=== PATIENT | female | born 1990 | race Caucasian/White ===

== ENCOUNTER 2017-07-02 19:45 | Emergency (ER) | payer MEDICAID ==
[~2017-07-02] VITALS: Ht 162.6 cm; Wt 99.6 kg
[~2017-07-02 19:45] MED LIST: HYDR-3240 PO; IBUP-1222 PO; MEDR10TA PO; OXYC1TAB7 PO
[2017-07-02 19:46] VITALS: BP 121/82
[2017-07-02] MEDS ORDERED: LIDOCAINE 1%, 20ML ONE (20:05)
[2017-07-02] MEDS ORDERED: DIPH,PERTUSS(ACELL),TET VAC/PF 0.5 ML IM-VACC ONE ×2 (20:06→20:30)
[2017-07-02] MEDS ORDERED: LIDOCAINE 1%, 20ML SQ ONE (20:30)
[2017-07-02] MEDS ORDERED: BACITRACIN ZINC OINT 500U/GM, 0.9 GM ONE (21:05)
== END 2017-07-02 21:24 | disposition home or self-care (01) ==
LOC: ED 21:18
DX: S61.411A Laceration without foreign body of right hand, initial encounter (principal); W26.0XXA Contact with knife, initial encounter; Y93.89 Activity, other specified; Y92.89 Other specified places as the place of occurrence of the external cause; Y99.8 Other external cause status
CPT/HCPCS: 12001; 90471; 90715; 99283

== ENCOUNTER 2018-03-13 10:13 | Emergency (ER) | payer MEDICAID ==
[~2018-03-13] VITALS: Ht 162.6 cm; Wt 90.0 kg
[2018-03-13] MEDS ORDERED: IBUPROFEN 200 MG TABLET PO ONE (11:00)
[2018-03-13] MEDS ORDERED: ACETAMINOPHEN 500 MG TABLET PO ONE (11:00)
[2018-03-13] MEDS ORDERED: IBUPROFEN 800 MG TABLET ONE (11:02)
[2018-03-13] MEDS ORDERED: ACETAMINOPHEN 500 MG TABLET ONE (11:03)
[2018-03-13 11:11] LABS: CULTURE INDICATED? YES; HCG UR SG 1.029 (1.003-1.030); MICROSCOPIC INDICATED
[2018-03-13 11:13] LABS: CLUE CELLS NONE SEEN (NONE SEEN)
[2018-03-13 11:14] LABS: WET PREP WBCS MODERATE (FEW)
[2018-03-13 11:53] VITALS: BP 116/71
== END 2018-03-13 11:56 | disposition home or self-care (01) ==
LOC: ED 11:50
DX: N30.90 Cystitis, unspecified without hematuria (principal); N80.9 Endometriosis, unspecified; Z90.49 Acquired absence of other specified parts of digestive tract; Z98.51 Tubal ligation status
CPT/HCPCS: 81001; 81025; 87086; 87210; 87491; 87591; 87808; 99284

== ENCOUNTER 2018-08-20 16:49 | Emergency (ER) | payer MEDICAID ==
[~2018-08-20] VITALS: Ht 162.6 cm; Wt 83.3 kg
[2018-08-20] MEDS ORDERED: AZITHROMYCIN 250 MG TABLET PO ONE (17:00)
[2018-08-20] MEDS ORDERED: CEFTRIAXONE 250 MG IM ONE (17:00)
[2018-08-20 17:42] LABS: BASOPHILS # (AUTO) 0.05 x10^3/uL (0-0.1); BASOPHILS % (AUTO) 1 % (0-1); EOSINOPHILS # (AUTO) 0.27 x10^3/uL (0-0.4); EOSINOPHILS % (AUTO) 4 % (1-7); LYMPHOCYTES # (AUTO) 2.62 x10^3/uL (1-3.4); LYMPHOCYTES % (AUTO) 38 % (22-44); MD NO; MEAN CORPUSCULAR HEMOGLOBIN 30.5 pg (27.0-34.8); MEAN CORPUSCULAR HGB CONC 33.3 g/dL (32.4-35.8); MEAN CORPUSCULAR VOLUME 91.5 fL (80-100); MEAN PLATELET VOLUME 9.2 fL (7.4-10.4); MONOCYTES # (AUTO) 0.35 x10^3/uL (0.2-0.8); MONOCYTES % (AUTO) 5 % (2-9); NEUTROPHILS # (AUTO) 3.55 x10^3/uL (1.8-6.8); NEUTROPHILS % (AUTO) 52 % (42-75); PLATELET COUNT 203 x10^3/uL (130-400); RED BLOOD COUNT 4.33 x10^6/uL (3.82-5.3)
[2018-08-20] MEDS ORDERED: CEFTRIAXONE 250 MG ONE (17:51)
[2018-08-20] MEDS ORDERED: AZITHROMYCIN 500 MG TABLET ONE (17:51)
[2018-08-20 17:53] LABS: ALANINE AMINOTRANSFERASE 12 U/L (12-78); ALBUMIN 3.6 g/dL (3.4-5.0); ANION GAP 6 mmol/L (5-15); CALCIUM 8.4 mg/dL (8.5-10.1); CHLORIDE 111 mmol/L (98-107); CREATININE 0.93 mg/dL (0.55-1.02)
[2018-08-20 17:57] LABS: MICROSCOPIC NOT IND
[2018-08-20 17:58] LABS: ALKALINE PHOSPHATASE 72 U/L (45-117); BILIRUBIN,TOTAL 0.2 mg/dL (0.2-1.0); TOTAL PROTEIN 7.3 g/dL (6.4-8.2)
[2018-08-20 17:59] LABS: CULTURE INDICATED? NO
[2018-08-20 18:38] VITALS: BP 118/68
== END 2018-08-20 18:41 | disposition home or self-care (01) ==
LOC: ED 18:25
DX: N89.8 Other specified noninflammatory disorders of vagina (principal); R10.2 Pelvic and perineal pain
CPT/HCPCS: 36415; 80053; 81003; 84702; 85025; 87491; 87591; 96372; 99283; J0696

== ENCOUNTER 2019-01-26 21:47 | Emergency (ER) | payer MEDICAID ==
[~2019-01-26] VITALS: Ht 162.6 cm; Wt 80.6 kg
[2019-01-26 22:27] LABS: BASOPHILS % (AUTO) 1 % (0-1); EOSINOPHILS # (AUTO) 0.06 x10^3/uL (0-0.4); EOSINOPHILS % (AUTO) 1 % (1-7); LYMPHOCYTES # (AUTO) 4.05 x10^3/uL (1-3.4); LYMPHOCYTES % (AUTO) 29 % (22-44); MD NO; MEAN CORPUSCULAR HEMOGLOBIN 30.9 pg (27.0-34.8); MEAN CORPUSCULAR HGB CONC 32.9 g/dL (32.4-35.8); MEAN PLATELET VOLUME 8.9 fL (7.4-10.4); MONOCYTES # (AUTO) 0.59 x10^3/uL (0.2-0.8); MONOCYTES % (AUTO) 4 % (2-9); NEUTROPHILS # (AUTO) 9.28 x10^3/uL (1.8-6.8); NEUTROPHILS % (AUTO) 66 % (42-75); PLATELET COUNT 204 x10^3/uL (130-400); RED BLOOD COUNT 4.34 x10^6/uL (3.82-5.3); RED CELL DISTRIBUTION WIDTH 14.5 % (9.6-15.2)
--- NOTE | 2019-01-26 22:28 | NUR ---
first contact with pt. pt c/o lower abdominal pain, described as cramping and pressure off and on x 1 month. tonight pain worse. + nausea. denies vomiting. denies painful with urination. LMP January 14. + lightheadedness. pt c/o verginal discharge as well. pt's aox4. resps even and unlabored. bp/spo2 monitors in place. call light within reach.
--- NOTE | 2019-01-26 22:29 | NUR ---
PT AMB TO BR AND BACK TO ROOM WITH STEADY GAIT. UA SENT.
[2019-01-26] MEDS ORDERED: HYDROcodone/APAP 5/325 TABLET PO ONE (22:30)
[2019-01-26 22:31] LABS: MICROSCOPIC NOT IND
[2019-01-26] MEDS ORDERED: HYDROcodone/APAP 5/325 TABLET ONE (22:32)
--- NOTE | 2019-01-26 22:34 | NUR ---
PT IN US NOW.
[2019-01-26 22:38] LABS: ALANINE AMINOTRANSFERASE 8 U/L (12-78); ALBUMIN 3.6 g/dL (3.4-5.0); ANION GAP 6 mmol/L (5-15); CALCIUM 8.4 mg/dL (8.5-10.1); CHLORIDE 109 mmol/L (98-107); CREATININE 0.87 mg/dL (0.55-1.02)
[2019-01-26 22:42] LABS: CULTURE INDICATED? NO
[2019-01-26 22:43] LABS: ALKALINE PHOSPHATASE 71 U/L (45-117); BILIRUBIN,TOTAL 0.2 mg/dL (0.2-1.0); TOTAL PROTEIN 7.3 g/dL (6.4-8.2)
--- NOTE | 2019-01-26 22:57 | NUR ---
PT BACK TO ROOM FROM US.
[2019-01-26 22:59] VITALS: BP 103/59
--- NOTE | 2019-01-26 22:59 | NUR ---
PT MEDICATED PER EMAR. PT TOLERATED WELL. PT'S AOX4. RESPS EVEN AND UNLABORED.
[2019-01-26] MEDS ORDERED: SODIUM CHLORIDE FLUSH 10ML SYR IVF ONE (23:00)
--- NOTE | 2019-01-26 23:25 | NUR ---
PT IN CT NOW.
[2019-01-26] MEDS ORDERED: OMNIPAQUE 350 MG/ML, 100ML BOTTLE ONE (23:41)
--- NOTE | 2019-01-26 23:46 | NUR ---
PT'S PAIN LEVEL IS 4/10 AT THIS TIME.
--- NOTE | 2019-01-27 00:29 | NUR ---
PT GIVEN DC INSTRUCTIONS. PT'S AOX4. RESPS EVEN AND UNLABORED. PT AMB TO DC WITH STEADY GAIT. NO ACUTE DISTRESS AT DC.
== END 2019-01-27 00:30 | disposition home or self-care (01) ==
LOC: ED 22:13
DX: R10.2 Pelvic and perineal pain (principal); R10.30 Lower abdominal pain, unspecified; F17.200 Nicotine dependence, unspecified, uncomplicated
CPT/HCPCS: 36415; 74177; 76830; 80053; 81003; 83690; 84703; 85025; 99284; Q9967

== ENCOUNTER 2019-09-25 11:39 | Emergency (ER) | payer MEDICAID ==
[~2019-09-25] VITALS: Ht 162.6 cm; Wt 85.6 kg
[2019-09-25 11:53] VITALS: BP 116/67
[2019-09-25 12:33] LABS: BASOPHILS # (AUTO) 0.03 x10^3/uL (0-0.1); BASOPHILS % (AUTO) 0 % (0-1); EOSINOPHILS % (AUTO) 0 % (1-7); LYMPHOCYTES % (AUTO) 12 % (22-44); MD NO; MEAN CORPUSCULAR HEMOGLOBIN 30.5 pg (27.0-34.8); MEAN CORPUSCULAR HGB CONC 33.1 g/dL (32.4-35.8); MEAN CORPUSCULAR VOLUME 92.4 fL (80-100); MEAN PLATELET VOLUME 8.9 fL (7.4-10.4); MONOCYTES # (AUTO) 1.31 x10^3/uL (0.2-0.8); MONOCYTES % (AUTO) 8 % (2-9); NEUTROPHILS # (AUTO) 12.73 x10^3/uL (1.8-6.8); NEUTROPHILS % (AUTO) 80 % (42-75); PLATELET COUNT 170 x10^3/uL (130-400); RED BLOOD COUNT 4.34 x10^6/uL (3.82-5.3); RED CELL DISTRIBUTION WIDTH 13.5 % (9.6-15.2)
[2019-09-25 12:45] LABS: ALANINE AMINOTRANSFERASE 31 U/L (12-78); ALBUMIN 3.3 g/dL (3.4-5.0); ANION GAP 8 mmol/L (5-15); CALCIUM 8.5 mg/dL (8.5-10.1); CHLORIDE 105 mmol/L (98-107)
[2019-09-25 12:50] LABS: ALKALINE PHOSPHATASE 77 U/L (45-117); TOTAL PROTEIN 7.7 g/dL (6.4-8.2)
[2019-09-25 12:51] LABS: BILIRUBIN,TOTAL 0.6 mg/dL (0.2-1.0)
[2019-09-25 13:01] LABS: MICROSCOPIC INDICATED
[2019-09-25] MEDS ORDERED: IBUPROFEN 200 MG TABLET ONE (14:32)
[2019-09-25] MEDS ORDERED: IBUPROFEN 600 MG TABLET PO ONE (15:00)
== END 2019-09-25 14:46 | disposition home or self-care (01) ==
LOC: ED 14:30
DX: J06.9 Acute upper respiratory infection, unspecified (principal); J02.9 Acute pharyngitis, unspecified; Z87.891 Personal history of nicotine dependence
CPT/HCPCS: 36415; 71046; 80053; 81001; 84703; 85025; 87081; 87880; 99284

== ENCOUNTER 2020-01-20 11:55 | Day surgery (SDC) | payer MEDICAID ==
[~2020-01-20] VITALS: Ht 162.6 cm; Wt 82.7 kg
[~2020-01-20 11:55] MED LIST changes: +BUPIVACAINE/PF 0.25% ONE; +BUPIVACAINE/PF-EPI 0.25% 1:200K ONE
[2020-01-20] MEDS ORDERED: CHLORHEXIDINE 15 ML UDC MM STA (12:06)
[2020-01-20] MEDS ORDERED: LACTATED RINGERS 1,000 ML IV ONE (12:06)
[2020-01-20 12:08] VITALS: BP 118/75
[2020-01-20] MEDS ORDERED: LIDOCAINE-MPF 1%, 2ML INFIL STA (12:26)
[2020-01-20 12:36] LABS: HCG UR SG 1.025 (1.003-1.030)
[2020-01-20] MEDS ORDERED: VANCOMYCIN 500 MG ONE (15:14)
[2020-01-20] MEDS ORDERED: GENTAMICIN 80 MG/2 ML ONE (15:14)
[2020-01-20] MEDS ORDERED: DEXAMETHASONE 4 MG/ML, 1ML ONE (16:19)
[2020-01-20] MEDS ORDERED: GLYCOPYRROLATE 0.2MG/1ML, 5ML ONE (16:19)
[2020-01-20] MEDS ORDERED: MIDAZOLAM 1 MG/ML, 2ML ONE ×2 (16:19→18:49)
[2020-01-20] MEDS ORDERED: ROCURONIUM 10MG/ML,5ML ONE (16:19)
[2020-01-20] MEDS ORDERED: LIDOCAINE-MPF 2% ,5ML ONE (16:19)
[2020-01-20] MEDS ORDERED: PROPOFOL 10 MG/ML, 20ML ONE (16:19)
[2020-01-20] MEDS ORDERED: FENTANYL PF 250 MCG/5ML ONE (16:19)
[2020-01-20] MEDS ORDERED: LABETALOL 5MG/ML, 20ML IV PRN (16:30)
[2020-01-20] MEDS ORDERED: METOPROLOL 1 MG/ML, 5ML IV PRN (16:30)
[2020-01-20] MEDS ORDERED: ALBUTEROL/IPRATROPIUM 2.5MG/0.5MG, 3 ML NPPB PRN (16:30)
[2020-01-20] MEDS ORDERED: EPHEDRINE 50 MG/ML, 1ML IVPush PRN (16:30)
[2020-01-20] MEDS ORDERED: DIPHENHYDRAMINE 50 MG/ML, 1ML IVPush PRN (16:30)
[2020-01-20] MEDS ORDERED: KETOROLAC 30 MG/1 ML IVPush PRN (16:30)
[2020-01-20] MEDS ORDERED: ONDANSETRON 2MG/ML, 2ML IVPush PRN (16:30)
[2020-01-20] MEDS ORDERED: HYDROcodone/APAP 7.5-325MG/15ML UDC PO PRN (16:30)
[2020-01-20] MEDS ORDERED: DIAZEPAM 5 MG/ML, 2ML IVPush PRN (16:30)
[2020-01-20] MEDS ORDERED: MEPERIDINE/PF 25MG/0.5ML IVPush PRN (16:30)
[2020-01-20] MEDS ORDERED: MIDAZOLAM 1 MG/ML, 2ML IV PRN (16:30)
[2020-01-20] MEDS ORDERED: METOCLOPRAMIDE 5 MG/ML, 2ML IVPush PRN (16:30)
[2020-01-20] MEDS ORDERED: OXYcodone 5 MG/5 ML ORAL.SOL UDC PO PRN (16:30)
[2020-01-20] MEDS ORDERED: hydrALAzine 20 MG/ML, 1ML IV PRN (16:30)
[2020-01-20] MEDS ORDERED: EPHEDRINE 50 MG/ML, 1ML IM PRN (16:30)
[2020-01-20] MEDS ORDERED: BUPIVACAINE/PF-EPI 0.25% 1:200K ONE (18:18)
[2020-01-20] MEDS ORDERED: KETOROLAC 30 MG/1 ML ONE (18:51)
[2020-01-20] MEDS ORDERED: FENTANYL PF 100 MCG/2ML ONE ×2 (18:53→19:05)
[2020-01-20] MEDS ORDERED: HYDROmorphone 1 MG/ML, 1ML INJ ONE ×3 (19:05→19:49)
[2020-01-20] MEDS: FENTANYL PF 100 MCG/2ML IV PRN ×2 (19:08→19:15)
[2020-01-20] MEDS: HYDROmorphone 1 MG/ML, 1ML INJ IVPush PRN ×5 (19:10→19:50)
[2020-01-20] MEDS ORDERED: HYDROcodone/APAP 5/325 TABLET PO PRN (22:00)
[2020-01-20] MEDS ORDERED: HYDROmorphone 1 MG/ML, 1ML INJ IV PRN (23:00)
[2020-01-20] MEDS ORDERED: ONDANSETRON 2MG/ML, 2ML IV PRN (23:00)
[2020-01-20] MEDS ORDERED: IBUPROFEN 600 MG TABLET PO PRN (23:00)
[2020-01-20] MEDS ORDERED: KETOROLAC 30 MG/1 ML IV PRN (23:00)
== END 2020-01-20 22:50 | disposition home or self-care (01) ==
LOC: OUT 11:55 → 4NE 20:01 → SDC 22:50
PROVIDERS: ATTEND Obstetrics & Gynecology Female Pelvic Medicine and Reconstructive Surgery
DX: N92.1 Excessive and frequent menstruation with irregular cycle (principal); N94.6 Dysmenorrhea, unspecified; N81.2 Incomplete uterovaginal prolapse; N81.89 Other female genital prolapse; N94.10 Unspecified dyspareunia; N39.3 Stress incontinence (female) (male); R10.2 Pelvic and perineal pain; E66.9 Obesity, unspecified; Z79.899 Other long term (current) drug therapy; Z90.49 Acquired absence of other specified parts of digestive tract; Z98.890 Other specified postprocedural states
CPT/HCPCS: 57265; 57288; 58552; 81025; 88307; C1771; J1100; J1170; J1580; J1885; J2250; J2704; J3010; J3370; J3490; J7120; U0001; G0378